=== PATIENT | male | born 1975 | race Caucasian/White ===

== ENCOUNTER 2016-03-02 23:22 | Emergency (ER) | payer OTHER ==
[~2016-03-02] VITALS: Ht 172.7 cm; Wt 111.1 kg
[~2016-03-02 23:22] MED LIST: ATORVASTATIN CA10 MG PO; MOBIC15 M1 PO
[2016-03-02 23:27] VITALS: BP 120/79
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
== END 2016-03-02 23:47 ==
LOC: ERH 23:22
DX: S09.92XA Unspecified injury of nose, initial encounter (principal); S00.31XA Abrasion of nose, initial encounter; W00.0XXA Fall on same level due to ice and snow, initial encounter; Y93.H1 Activity, digging, shoveling and raking
CPT/HCPCS: 90471; 90714